=== PATIENT | female | born 1985 | race Caucasian/White ===

== ENCOUNTER 2016-08-20 08:52 | Day surgery (SDC) | payer BC ==
[~2016-08-20] VITALS: Ht 170.2 cm; Wt 69.4 kg
[~2016-08-20 08:52] MED LIST: ANTIFUNGAL30 GM TP; FISH OIL 1,0001 EAC7 PO; GUMMI BEAR MUL1 EACH PO; LOTRISONE LOTIO30 ML TP; PAXIL40 MG PO; SELENIUM SULFI180 ML TP
[2016-08-20 09:18] VITALS: BP 118/74
[2016-08-20] MEDS ORDERED: COLACE100 MG PO (14:09)
[2016-08-20] MEDS ORDERED: PERCOCET 5/31 TABLET PO (14:09)
[2016-08-20 16:34] VITALS: BP 114/74
[2016-08-20 17:25] VITALS: BP 109/72
== END 2016-08-20 17:45 | disposition home or self-care (01) ==
LOC: SDC 08:52
PROC: 0WUF4JZ Supplement Abdominal Wall with Synthetic Substitute, Percutaneous Endoscopic Approach (ICD-10-PCS; principal; 2016-08-20)
DX: K42.9 Umbilical hernia without obstruction or gangrene (principal); F17.210 Nicotine dependence, cigarettes, uncomplicated; Z82.61 Family history of arthritis; Z82.5 Family history of asthma and other chronic lower respiratory diseases; Z81.8 Family history of other mental and behavioral disorders; Z83.3 Family history of diabetes mellitus; Z80.7 Family history of other malignant neoplasms of lymphoid, hematopoietic and related tissues; Z80.3 Family history of malignant neoplasm of breast
CPT/HCPCS: C1781; J0690; J1100; J1170; J2250; J2405; J3010